=== PATIENT | male | born 1980 | race Caucasian/White ===

== ENCOUNTER 2020-01-30 18:20 | Emergency (ER) | payer MEDICAID ==
[~2020-01-30] VITALS: Ht 167.6 cm; Wt 93.0 kg
[2020-01-30 18:30] VITALS: Ht 167.6 cm; Wt 93.0 kg
[2020-01-30 20:48] VITALS: BP 122/81
== END 2020-01-30 20:48 | disposition home or self-care (01) ==
LOC: ED 18:20
DX: L03.116 Cellulitis of left lower limb (principal); L08.9 Local infection of the skin and subcutaneous tissue, unspecified; W57.XXXA Bitten or stung by nonvenomous insect and other nonvenomous arthropods, initial encounter; Y93.89 Activity, other specified; Y92.89 Other specified places as the place of occurrence of the external cause; Y99.8 Other external cause status